=== PATIENT | female | born 1980 | race Caucasian/White ===

== ENCOUNTER 2022-04-03 22:10 | Emergency (ER) | payer OTHER ==
[2022-04-03 23:48] LABS: HEMOGLOBIN 14.5 gm/dl (12.3-15.3); RED BLOOD COUNT 4.73 M/UL (4.00-5.10); WHITE BLOOD COUNT 12.7 K/UL (4.5-11.0)
[2022-04-04 00:32] LABS: BUN/CREATININE RATIO 14 (0-10)
== END 2022-04-04 02:10 | disposition left against medical advice (07) ==
LOC: ER1 22:10
PROVIDERS: Family Medicine
DX: Z53.21 Procedure and treatment not carried out due to patient leaving prior to being seen by health care provider (principal)
CPT/HCPCS: 80053; 82550; 82553; 84484; 85025